=== PATIENT | male | born 1970 | race Caucasian/White ===

== ENCOUNTER 2024-04-09 09:26 | Day surgery (SDC) | payer OTHER, SELFPAY ==
[2024-04-09 09:48] VITALS: BP 135/92; PULSE 75; RESP 18; TEMP 36.5; O2SAT 96; BMI 32.3
[2024-04-09] MEDS: sodium chloride 0.9% 1,000 ML 30 ML IV (09:52)
--- NOTE | 2024-04-09 10:14 | W.PM.OPSFHP ---
Same Day Surgery H&P Indication for Procedure/HPI DATE OF PROCEDURE: April 09, 2024 CHIEF COMPLAINT/INDICATIONFOR SURGICAL PROCEDURE: need for screening colonoscopy PREOP DIAGNOSIS: need for screening colonoscopy PLANNED PROCEDURE: Operation Date: 04/09/24 11:00 Proposed Procedures p Colonoscopy / 77131, G0105, Z12.11(Not Applicable) - Andrea Porras MD Medications/Allergies* Home Medications Medication Instructions Recorded Confirmed Type lisinopril 10 mg tablet 10 mg PO DAILY 02/26/24 04/07/24 History methimazole 5 mg tablet 5 mg PO DAILY 02/26/24 04/07/24 History omeprazole 20 mg capsule,delayed 20 mg PO DAILY 02/26/24 04/07/24 History release Allergies/Adverse Reactions Allergy/AdvReac Type Severity Reaction Status Date / Time No Known Allergies Allergy Unverified 02/26/24 14:27 Current Medications: Generic Name Dose Route Start Last Admin Trade Name Freq PRN Reason Stop Dose Admin Sodium Chloride 1,000 mls @ 30 mls/hr 04/09/24 09:45 04/09/24 09:52 Sodium Chloride 0.9% IV 04/10/24 09:44 30 mls/hr .Q24H FERMIN Administration Pertinent History/Comorbid Conditions* Family History (Updated 02/26/24 @ 14:31 by SUMIT Jensen) Cancer Grandfather colon Unknown Uncles- colon cancer Social History Smoking and tobacco/nicotine status: never used tobacco/nicotine Alcohol intake: former Pertinent Exam Findings alert, oriented x 3 and clear to auscultation bilaterally Recommendations Surgery/Procedure today Coding Level of Care Code Acute Code for Alejandrag Alina
--- NOTE | 2024-04-09 10:23 | ANES.PREANE2 ---
Pre-Anesthetic Assessment Height/Weight: Height 6 ft 1 in Weight 245 lb Temp Pulse Resp BP Pulse Ox O2 Del Method 97.7 F 75 18 135/92 96 Room Air 04/09/24 09:48 04/09/24 09:48 04/09/24 09:48 04/09/24 09:48 04/09/24 09:48 04/09/24 09:48 Preop Diagnosis: need for screening colonoscopy Operation Date: 04/09/24 11:00 Proposed Procedures p Colonoscopy / 70119, G0105, Z12.11(Not Applicable) - Andrea Porras MD Was Beta Susan taken within 24 hours: N/A Was Clonidine taken within 24 hours: N/A Last intake: Intake Last Liquid Date 04/08/24 Last Liquid Time 21:00 Last Solid Date 04/07/24 Last Solid Time 20:00 Social No alcohol and No tobacco Exam alert, oriented x 3, clear to auscultation bilaterally and regular rate & rhythm Airway Submandibular: within normal limits Cervical ROM: within normal limits Mallampati: Class I Dentition: full Anesthetic Plan ASA status: 2 Anesthesia: MAC Other: No prior issues with anesthesia History of hypertension on lisinopril Hyperthyroidism, on methimazole. Taken yesterday GERD on omeprazole Denies any pulmonary issues METs greater than 4 Plan for MAC anesthetic Medications/Allergies Home Medications Medication Instructions Recorded Confirmed Last Taken Type lisinopril 10 mg tablet 10 mg PO DAILY 02/26/24 04/07/24 04/08/24 History methimazole 5 mg tablet 5 mg PO DAILY 02/26/24 04/07/24 04/08/24 History omeprazole 20 mg capsule,delayed 20 mg PO DAILY 02/26/24 04/07/24 04/08/24 History release Allergies Allergy/AdvReac Type Severity Reaction Status Date / Time No Known Allergies Allergy Unverified 02/26/24 14:27 Current Medications Generic Name Dose Route Start Last Admin Trade Name Freq PRN Reason Stop Dose Admin Sodium Chloride 1,000 mls @ 30 mls/hr 04/09/24 09:45 04/09/24 09:52 Sodium Chloride 0.9% IV 04/10/24 09:44 30 mls/hr .Q24H FERMIN Administration PFSH Anesthesia Family History (Updated 02/26/24 @ 14:31 by SUMIT Jensen) Grandfather Cancer colon Unknown Cancer Uncles- colon cancer Social History (Updated 02/26/24 @ 14:32 by SUMIT Jensen) Smoking and tobacco/nicotine status: never used tobacco/nicotine Alcohol intake: former Data Anesthesia Cardiac Studies: No Data to Display
[2024-04-09 10:54] VITALS: BP 122/79; PULSE 74; RESP 20; TEMP 36.5; O2SAT 99
[2024-04-09 11:09] VITALS: BP 132/87; PULSE 70; RESP 20; O2SAT 98
--- NOTE | 2024-04-09 12:10 | ANE.PACU2 ---
Inpatient post-anesthesia follow up: Airway intact: Yes Vital signs: Temperature 97.7 F Pulse Rate 70 Respiratory Rate 20 Blood Pressure 132/87 Pulse Oximetry 98 Oxygen Delivery Me thod Room Air Oxygen Flow Rate Fraction of Inspir ed Oxygen Hydration adequate: Yes Nausea and vomiting: No Pain level: 1 Mental status: Baseline
== END 2024-04-09 12:10 | disposition home or self-care (01) ==
PROVIDERS: PCP Family Medicine; Visit Provider Surgery
PROC: 0DJD8ZZ Inspection of Lower Intestinal Tract, Via Natural or Artificial Opening Endoscopic (ICD-10-PCS; CPT 45378; principal; 2024-04-09 11:00)
DX: Z12.11 Encounter for screening for malignant neoplasm of colon (principal); I10 Essential (primary) hypertension; E03.9 Hypothyroidism, unspecified; K21.9 Gastro-esophageal reflux disease without esophagitis
CPT/HCPCS: 45378; J2704; J7030